=== PATIENT | female | born 1990 | race Caucasian/White ===

== ENCOUNTER 2017-05-04 20:17 | Emergency (ER) | payer OTHER, MEDICAID ==
[~2017-05-04] VITALS: Ht 160 cm; Wt 95.1 kg
[2017-05-04 20:18] VITALS: BP 130/82
== END 2017-05-04 22:39 | disposition home or self-care (01) ==
LOC: ED 22:35
DX: J04.0 Acute laryngitis (principal)
CPT/HCPCS: 71020; 99284